=== PATIENT | female | born 1965 | race Caucasian/White ===

== ENCOUNTER 2023-06-07 11:47 | Day surgery (SDC) | payer BC ==
[2023-06-05 12:47] VITALS: BMI 21.6
[2023-06-07] MEDS ORDERED: Midazolam HCl 2 mg/2 ml Vial ONE (13:09)
[2023-06-07] MEDS ORDERED: Dexamethasone 20 MG/5 ML VIAL ONE (13:52)
[2023-06-07] MEDS ORDERED: PROPOFOL 20 ML ONE (13:52)
[2023-06-07] MEDS ORDERED: fentaNYL 50 mcg/mL 1 mL Vial ONE (13:52)
[2023-06-07] MEDS ORDERED: Ondansetron PF 4 MG/2 ML Vial ONE (13:52)
[2023-06-07] MEDS ORDERED: Lidocaine 1% PF 5 ML VIAL ONE (13:52)
[2023-06-07] MEDS ORDERED: Ketorolac Tromethamine 30 MG/ML VIAL ONE (13:52)
[2023-06-07] MEDS ORDERED: CEFAZOLIN 1 GM VIAL ONE (13:56)
[2023-06-07] MEDS ORDERED: Bupivacaine PF 0.5% 30 ML VIAL ONE (14:15)
== END 2023-06-07 16:00 | disposition home or self-care (01) ==
LOC: CSHSDC 11:47
PROVIDERS: ATTEND Podiatrist Foot & Ankle Surgery
PROC: 0SSH05Z Reposition Right Tarsal Joint with External Fixation Device, Open Approach (ICD-10-PCS; principal; 2023-06-07)
DX: Z01.818 Encounter for other preprocedural examination (principal); M20.41 Other hammer toe(s) (acquired), right foot; I10 Essential (primary) hypertension; E78.00 Pure hypercholesterolemia, unspecified; E04.1 Nontoxic single thyroid nodule; G43.009 Migraine without aura, not intractable, without status migrainosus; F41.8 Other specified anxiety disorders; F10.10 Alcohol abuse, uncomplicated; G89.29 Other chronic pain; M54.50 Low back pain, unspecified; M48.02 Spinal stenosis, cervical region; K59.00 Constipation, unspecified; M19.90 Unspecified osteoarthritis, unspecified site; Z87.891 Personal history of nicotine dependence; Z90.89 Acquired absence of other organs; Z79.899 Other long term (current) drug therapy
CPT/HCPCS: J0690; J1100; J1885; J2250; J2405; J2704; J3010; S0020